=== PATIENT | male | born 1940 | race Caucasian/White ===

== ENCOUNTER 2018-10-03 19:09 | Inpatient (IN) ==
[2018-10-03] MEDS ORDERED: GLUCAGON 1 MG VIAL IM PRN (20:51)
[2018-10-03] MEDS ORDERED: ONDANSETRON 4 MG/2 ML VIAL IV PRN (20:51)
[2018-10-03] MEDS ORDERED: ACETAMINOPHEN 325 MG TABLET PO PRN (20:51)
[2018-10-03] MEDS ORDERED: DEXTROSE 50% 25 GM/50 ML SYRINGE IV PRN (20:51)
[2018-10-03 21:54] LABS: Basophils % 0.1 % (0.0-0.8); Eosinophils # 0.4 10*3/uL (0.0-0.87); Eosinophils % 4.2 % (0.00-10.9); Hematocrit 39.3 VOL% (42.0-52.0); Hemoglobin 12.4 GM/DL (14.0-18.0); Immature Granulocytes % 0.4 %; Immature Granulocytes Absolute 0.04 #; Lymphocytes % 11.5 % (21.2-54.2); Mean Corpuscular HGB Conc 31.6 GM/DL (32-36); Mean Corpuscular Hemoglobin 32 PG (27-34); Mean Corpuscular Volume 101.8 FL (87-102); Mean Platelet Volume 10.6 FL (9.6-12.0); Monocytes # 0.7 10*3/uL (0.11-0.8); Monocytes % 7.5 % (1.7-12.7); Neutrophils # 6.9 10*3/uL (1.4-7.4); Neutrophils % 76.3 % (38.7-73.9); Platelet Count 156 T/CUMM (130-400); Red Blood Count 3.86 MC/CUMM (3.8-5.5); Red Cell Distribution Width 15.4 % (9.3-17.3)
[2018-10-03 22:15] LABS: Bilirubin,Total 0.8 MG/DL (0.2-1.0); Osmolality,Calculated 286.7 MOS/KG (273-304); Potassium 4.5 MMOL/L (3.5-5.1); Total Protein 9.5 G/DL (6.4-8.3)
[2018-10-03 22:36] LABS: Platelet Estimate Normal; Polychromasia Few
[2018-10-03] MEDS: METOPROLOL TARTRATE 25 MG TABLET PO SCH (23:45)
[2018-10-03] MEDS: BENZONATATE 100 MG CAPSULE PO PRN (23:45)
[2018-10-03] MEDS: SIMVASTATIN 40 MG TABLET PO SCH (23:45)
[2018-10-03] MEDS: PREGABALIN 100 MG CAPSULE PO SCH (23:45)
[2018-10-03] MEDS: ZALEPLON 5 MG CAPSULE PO PRN (23:46)
[2018-10-04] MEDS: BENZONATATE 100 MG CAPSULE PO PRN ×2 (06:33→09:35)
[2018-10-04] MEDS ORDERED: VALSARTAN 160 MG TABLET PO SCH (09:00)
[2018-10-04] MEDS: FUROSEMIDE 40 MG/4 ML VIAL IV SCH ×2 (09:33→16:55)
[2018-10-04] MEDS: METOPROLOL TARTRATE 25 MG TABLET PO SCH ×2 (09:34→20:59)
[2018-10-04] MEDS: PARoxetine 20 MG TABLET PO SCH (09:34)
[2018-10-04] MEDS: POTASSIUM CHLORIDE 10 MEQ TABLET PO SCH (09:34)
[2018-10-04] MEDS: glipiZIDE 5 MG TABLET PO SCH (09:34)
[2018-10-04] MEDS: PREGABALIN 100 MG CAPSULE PO SCH ×2 (09:35→21:00)
[2018-10-04] MEDS: TERAZOSIN 2 MG CAPSULE PO SCH ×3 (09:35→20:59)
[2018-10-04] MEDS: FLUTICASONE 50 MCG NASAL SPRAY 16 GM BOTTLE BOTH NARES SCH (09:47)
[2018-10-04] MEDS: PANTOPRAZOLE 40 MG TABLET PO SCH (09:47)
[2018-10-04] MEDS: LEVOFLOXACIN INJ 500 MG in PREMIX 1 EACH IV SCH (13:30)
[2018-10-04] MEDS: ALBUTEROL/IPRATROPIUM 3 ML NEB RESP TX SCH (19:07)
[2018-10-04] MEDS: ASPIRIN EC 325 MG TABLET PO SCH (21:00)
[2018-10-04] MEDS: ZALEPLON 5 MG CAPSULE PO PRN (21:00)
[2018-10-04] MEDS: SIMVASTATIN 40 MG TABLET PO SCH (21:00)
[2018-10-05] MEDS: ALBUTEROL/IPRATROPIUM 3 ML NEB RESP TX SCH ×4 (01:05→18:58)
[2018-10-05 05:42] LABS: Calcium 8.5 MG/DL (8.5-10.1); Osmolality,Calculated 286.7 MOS/KG (273-304)
[2018-10-05] MEDS: PANTOPRAZOLE 40 MG TABLET PO SCH (08:12)
[2018-10-05] MEDS: METOPROLOL TARTRATE 25 MG TABLET PO SCH ×2 (08:12→23:52)
[2018-10-05] MEDS: TERAZOSIN 2 MG CAPSULE PO SCH ×2 (08:12→16:31)
[2018-10-05] MEDS: PARoxetine 20 MG TABLET PO SCH (08:12)
[2018-10-05] MEDS: FUROSEMIDE 40 MG/4 ML VIAL IV SCH ×2 (08:12→15:56)
[2018-10-05] MEDS: ASPIRIN EC 325 MG TABLET PO SCH (08:12)
[2018-10-05] MEDS: POTASSIUM CHLORIDE 10 MEQ TABLET PO SCH (08:12)
[2018-10-05] MEDS: glipiZIDE 5 MG TABLET PO SCH (08:13)
[2018-10-05] MEDS: PREGABALIN 100 MG CAPSULE PO SCH ×2 (08:14→21:49)
[2018-10-05] MEDS: FLUTICASONE 50 MCG NASAL SPRAY 16 GM BOTTLE BOTH NARES SCH (08:14)
[2018-10-05] MEDS ORDERED: VALSARTAN 160 MG TABLET PO SCH (09:00)
[2018-10-05] MEDS: LEVOFLOXACIN INJ 500 MG in PREMIX 1 EACH IV SCH (13:11)
[2018-10-05] MEDS: BENZONATATE 100 MG CAPSULE PO PRN (13:11)
[2018-10-05] MEDS: ZALEPLON 5 MG CAPSULE PO PRN (21:49)
[2018-10-05] MEDS: SIMVASTATIN 40 MG TABLET PO SCH (21:50)
[2018-10-06] MEDS: ALBUTEROL/IPRATROPIUM 3 ML NEB RESP TX SCH ×4 (00:17→18:56)
[2018-10-06 05:39] LABS: Basophils % 0.2 % (0.0-0.8); Eosinophils # 0.6 10*3/uL (0.0-0.87); Eosinophils % 12.4 % (0.00-10.9); Hematocrit 34.8 VOL% (42.0-52.0); Hemoglobin 10.9 GM/DL (14.0-18.0); Immature Granulocytes % 0.4 %; Immature Granulocytes Absolute 0.02 #; Lymphocytes % 19.5 % (21.2-54.2); Mean Corpuscular HGB Conc 31.3 GM/DL (32-36); Mean Corpuscular Hemoglobin 32 PG (27-34); Mean Corpuscular Volume 103.3 FL (87-102); Mean Platelet Volume 10.8 FL (9.6-12.0); Monocytes # 0.6 10*3/uL (0.11-0.8); Monocytes % 12.4 % (1.7-12.7); Neutrophils # 2.7 10*3/uL (1.4-7.4); Neutrophils % 55.1 % (38.7-73.9); Platelet Count 150 T/CUMM (130-400); Red Blood Count 3.37 MC/CUMM (3.8-5.5); Red Cell Distribution Width 15.1 % (9.3-17.3); White Blood Count 4.9 T/CUMM (4-12)
[2018-10-06 05:46] LABS: Calcium 8.3 MG/DL (8.5-10.1); Potassium 4.3 MMOL/L (3.5-5.1)
[2018-10-06 06:40] LABS: Band Neutrophils 2 % (0-10); Eosinophils 10 % (0-10); Hypochromasia Slight; Lymphocytes 24 % (20-55); Platelet Estimate Adequate; Segmented Neutrophils 50 % (50-85); Total Cells Counted 100
[2018-10-06] MEDS: FUROSEMIDE 40 MG/4 ML VIAL IV SCH ×2 (08:50→15:31)
[2018-10-06] MEDS: ASPIRIN EC 325 MG TABLET PO SCH (08:51)
[2018-10-06] MEDS: PANTOPRAZOLE 40 MG TABLET PO SCH (08:51)
[2018-10-06] MEDS: METOPROLOL TARTRATE 25 MG TABLET PO SCH ×2 (08:51→21:48)
[2018-10-06] MEDS: PARoxetine 20 MG TABLET PO SCH (08:51)
[2018-10-06] MEDS: VALSARTAN 80 MG TABLET PO SCH (08:51)
[2018-10-06] MEDS: FLUTICASONE 50 MCG NASAL SPRAY 16 GM BOTTLE BOTH NARES SCH (08:52)
[2018-10-06] MEDS: glipiZIDE 5 MG TABLET PO SCH (08:52)
[2018-10-06] MEDS: PREGABALIN 100 MG CAPSULE PO SCH ×2 (08:52→21:48)
[2018-10-06] MEDS: POTASSIUM CHLORIDE 10 MEQ TABLET PO SCH (08:52)
[2018-10-06] MEDS: LEVOFLOXACIN INJ 500 MG in PREMIX 1 EACH IV SCH (12:47)
[2018-10-06] MEDS: DUTASTERIDE 0.5 MG CAPSULE PO SCH (12:47)
[2018-10-06] MEDS: SIMVASTATIN 40 MG TABLET PO SCH (21:48)
[2018-10-07] MEDS: ALBUTEROL/IPRATROPIUM 3 ML NEB RESP TX SCH ×4 (00:12→19:35)
[2018-10-07] MEDS: METOPROLOL TARTRATE 25 MG TABLET PO SCH ×2 (08:41→21:24)
[2018-10-07] MEDS: POTASSIUM CHLORIDE 10 MEQ TABLET PO SCH (08:41)
[2018-10-07] MEDS: PANTOPRAZOLE 40 MG TABLET PO SCH (08:41)
[2018-10-07] MEDS: PREGABALIN 100 MG CAPSULE PO SCH ×2 (08:41→21:23)
[2018-10-07] MEDS: PARoxetine 20 MG TABLET PO SCH (08:41)
[2018-10-07] MEDS: DUTASTERIDE 0.5 MG CAPSULE PO SCH (08:41)
[2018-10-07] MEDS: FUROSEMIDE 40 MG/4 ML VIAL IV SCH ×2 (08:42→16:04)
[2018-10-07] MEDS: glipiZIDE 5 MG TABLET PO SCH (08:42)
[2018-10-07] MEDS: FLUTICASONE 50 MCG NASAL SPRAY 16 GM BOTTLE BOTH NARES SCH (08:42)
[2018-10-07] MEDS: VALSARTAN 80 MG TABLET PO SCH (08:45)
[2018-10-07] MEDS: LEVOFLOXACIN INJ 500 MG in PREMIX 1 EACH IV SCH (12:56)
[2018-10-07] MEDS: SIMVASTATIN 40 MG TABLET PO SCH (21:23)
[2018-10-08] MEDS: ALBUTEROL/IPRATROPIUM 3 ML NEB RESP TX SCH ×4 (00:45→19:50)
[2018-10-08] MEDS: METOPROLOL TARTRATE 25 MG TABLET PO SCH ×2 (08:21→21:07)
[2018-10-08] MEDS: PARoxetine 20 MG TABLET PO SCH (08:22)
[2018-10-08] MEDS: DUTASTERIDE 0.5 MG CAPSULE PO SCH (08:22)
[2018-10-08] MEDS: VALSARTAN 80 MG TABLET PO SCH (08:22)
[2018-10-08] MEDS: PANTOPRAZOLE 40 MG TABLET PO SCH (08:23)
[2018-10-08] MEDS: glipiZIDE 5 MG TABLET PO SCH (08:23)
[2018-10-08] MEDS: PREGABALIN 100 MG CAPSULE PO SCH ×2 (08:23→21:07)
[2018-10-08] MEDS: POTASSIUM CHLORIDE 10 MEQ TABLET PO SCH (08:23)
[2018-10-08] MEDS: FUROSEMIDE 40 MG/4 ML VIAL IV SCH ×3 (08:24→16:29)
[2018-10-08] MEDS: FLUTICASONE 50 MCG NASAL SPRAY 16 GM BOTTLE BOTH NARES SCH (08:25)
[2018-10-08] MEDS: LEVOFLOXACIN INJ 500 MG in PREMIX 1 EACH IV SCH (13:18)
[2018-10-08] MEDS: SIMVASTATIN 40 MG TABLET PO SCH (21:07)
[2018-10-09] MEDS: ALBUTEROL/IPRATROPIUM 3 ML NEB RESP TX SCH ×3 (00:03→13:15)
[2018-10-09 04:57] LABS: Basophils % 0.3 % (0.0-0.8); Eosinophils # 0.7 10*3/uL (0.0-0.87); Eosinophils % 10.4 % (0.00-10.9); Hematocrit 33.5 VOL% (42.0-52.0); Hemoglobin 10.8 GM/DL (14.0-18.0); Immature Granulocytes % 0.2 %; Immature Granulocytes Absolute 0.01 #; Lymphocytes # 0.7 10*3/uL (1.4-4.0); Lymphocytes % 10.6 % (21.2-54.2); Mean Corpuscular HGB Conc 32.2 GM/DL (32-36); Mean Corpuscular Hemoglobin 32 PG (27-34); Mean Corpuscular Volume 99.7 FL (87-102); Mean Platelet Volume 11.1 FL (9.6-12.0); Monocytes # 0.8 10*3/uL (0.11-0.8); Monocytes % 11.3 % (1.7-12.7); Neutrophils # 4.4 10*3/uL (1.4-7.4); Neutrophils % 67.2 % (38.7-73.9); Platelet Count 175 T/CUMM (130-400); Red Blood Count 3.36 MC/CUMM (3.8-5.5); White Blood Count 6.6 T/CUMM (4-12)
[2018-10-09 05:36] LABS: Albumin 3.3 G/DL (3.4-5.0); Bilirubin,Total 0.7 MG/DL (0.2-1.0); Calcium 8.8 MG/DL (8.5-10.1); Potassium 4.3 MMOL/L (3.5-5.1); Total Protein 8.1 G/DL (6.4-8.3)
[2018-10-09] MEDS: PANTOPRAZOLE 40 MG TABLET PO SCH (08:55)
[2018-10-09] MEDS: FUROSEMIDE 40 MG/4 ML VIAL IV SCH ×2 (08:55→14:43)
[2018-10-09] MEDS: POTASSIUM CHLORIDE 10 MEQ TABLET PO SCH (08:56)
[2018-10-09] MEDS: glipiZIDE 5 MG TABLET PO SCH (08:56)
[2018-10-09] MEDS: DUTASTERIDE 0.5 MG CAPSULE PO SCH (08:56)
[2018-10-09] MEDS: PREGABALIN 100 MG CAPSULE PO SCH (08:56)
[2018-10-09] MEDS: VALSARTAN 80 MG TABLET PO SCH (08:56)
[2018-10-09] MEDS: PARoxetine 20 MG TABLET PO SCH (08:56)
[2018-10-09] MEDS: FLUTICASONE 50 MCG NASAL SPRAY 16 GM BOTTLE BOTH NARES SCH (08:57)
[2018-10-09] MEDS: METOPROLOL TARTRATE 25 MG TABLET PO SCH (08:57)
[2018-10-09] MEDS ORDERED: ASPIRIN CHEW 81 MG TABLET PO SCH (11:30)
[2018-10-09 12:32] VITALS: BP 93/49
== END 2018-10-09 14:40 | disposition home health service (06) | DRG 291 ==
LOC: EDUNIT# → EDBD → N.ED 19:09 → N.EDINP 20:51 → N.TELES 21:19
PROVIDERS: ADMIT Family Medicine; ATTEND Family Medicine

== ENCOUNTER 2020-09-22 11:24 | Inpatient (IN) ==
[2020-09-22] MEDS ORDERED: ONDANSETRON 4 MG/2 ML VIAL IV PRN (12:31)
[2020-09-22] MEDS ORDERED: ACETAMINOPHEN 325 MG TABLET PO PRN (12:31)
[2020-09-22] MEDS ORDERED: DEXTROSE 50% 25 GM/50 ML VIAL IV PRN (12:31)
[2020-09-22] MEDS ORDERED: GLUCAGON 1 MG VIAL IM PRN (12:31)
[2020-09-22] MEDS ORDERED: NITROGLYCERIN SL 0.4 MG TABLET SL PRN (12:34)
[2020-09-22 14:07] LABS: Basophils % 0.4 % (0.0-0.8); Eosinophils # 1.2 10*3/uL (0.0-0.87); Eosinophils % 17.8 % (0.00-10.9); Hematocrit 35.3 VOL% (42.0-52.0); Hemoglobin 11.3 GM/DL (14.0-18.0); Immature Granulocytes % 0.3 %; Immature Granulocytes Absolute 0.02 #; Lymphocytes # 0.8 10*3/uL (1.4-4.0); Lymphocytes % 12.2 % (21.2-54.2); Mean Corpuscular Volume 106.3 FL (87-102); Mean Platelet Volume 11.1 FL (9.6-12.0); Neutrophils % 58.3 % (38.7-73.9); Platelet Count 190 T/CUMM (130-400); Red Blood Count 3.32 MC/CUMM (3.8-5.5); Red Cell Distribution Width 16.1 % (9.3-17.3); White Blood Count 6.7 T/CUMM (4-12)
[2020-09-22 14:29] LABS: Albumin 3.7 G/DL (3.4-5.0); Bilirubin,Total 0.7 MG/DL (0.2-1.0); Calcium 9.1 MG/DL (8.5-10.1); Osmolality,Calculated 294.1 MOS/KG (273-304); Potassium 4.2 MMOL/L (3.5-5.1); Total Protein 7.9 G/DL (6.4-8.2); Troponin I 0.022 NG/ML (0.00-0.045)
[2020-09-22 14:33] LABS: Eosinophils 21 % (0-10); Hypochromasia 1+; Lymphocytes 9 % (20-55); Microcytosis 1+; Platelet Estimate Adequate; Segmented Neutrophils 60 % (50-85); Total Cells Counted 100
[2020-09-22] MEDS: ALBUTEROL/IPRATROPIUM 3 ML NEB RESP TX SCH ×2 (15:48→19:09)
[2020-09-22] MEDS: FUROSEMIDE 40 MG/4 ML VIAL IV SCH (16:12)
[2020-09-22] MEDS: ENOXAPARIN 30 MG/0.3 ML SYRINGE SUBCUT SCH (16:12)
[2020-09-22 17:23] LABS: Troponin I 0.024 NG/ML (0.00-0.045)
[2020-09-22] MEDS: INSULIN LISPRO 100 UNIT/ML SUBCUT SCH ×2 (18:05→21:24)
[2020-09-22 19:31] LABS: Troponin I 0.021 NG/ML (0.00-0.045)
[2020-09-22] MEDS: DOCUSATE SODIUM 100 MG CAPSULE PO SCH (21:23)
[2020-09-22] MEDS: MYCOPHENOLATE MOFETIL 250 MG CAPSULE PO SCH (21:23)
[2020-09-22] MEDS: PREGABALIN 100 MG CAPSULE PO SCH (21:23)
[2020-09-22] MEDS: TAMSULOSIN 0.4 MG CAPSULE PO SCH (21:23)
[2020-09-22] MEDS: SIMVASTATIN 40 MG TABLET PO SCH (21:24)
[2020-09-22] MEDS: carvediloL 12.5 MG TABLET PO SCH (21:24)
[2020-09-22] MEDS: INSULIN GLARGINE 100 UNIT/ML SUBCUT SCH (21:25)
[2020-09-22 21:58] LABS: Troponin I 0.021 NG/ML (0.00-0.045)
[2020-09-23] MEDS: ALBUTEROL/IPRATROPIUM 3 ML NEB RESP TX SCH ×4 (01:23→19:53)
[2020-09-23 06:59] LABS: Basophils % 0.5 % (0.0-0.8); Eosinophils # 1.2 10*3/uL (0.0-0.87); Eosinophils % 19.2 % (0.00-10.9); Hematocrit 33.9 VOL% (42.0-52.0); Immature Granulocytes % 0.2 %; Immature Granulocytes Absolute 0.01 #; Lymphocytes # 0.8 10*3/uL (1.4-4.0); Lymphocytes % 13.3 % (21.2-54.2); Mean Corpuscular HGB Conc 32.4 GM/DL (32-36); Mean Platelet Volume 12.2 FL (9.6-12.0); Monocytes % 11.1 % (1.7-12.7); Neutrophils % 55.7 % (38.7-73.9); Platelet Count 147 T/CUMM (130-400); Red Blood Count 3.23 MC/CUMM (3.8-5.5)
[2020-09-23 07:14] LABS: Risk Ratio 4.38; VLDL CHOLESTEROL 27.6 MG/DL
[2020-09-23 07:29] LABS: Eosinophils 22 % (0-10); Hypochromasia 1+; Lymphocytes 13 % (20-55); Microcytosis 1+; Platelet Estimate Adequate; Segmented Neutrophils 60 % (50-85); Total Cells Counted 100
[2020-09-23 07:43] LABS: Osmolality,Calculated 290.5 MOS/KG (273-304); Potassium 3.6 MMOL/L (3.5-5.1)
[2020-09-23] MEDS: INSULIN LISPRO 100 UNIT/ML SUBCUT SCH ×4 (07:47→22:15)
[2020-09-23 08:15] LABS: Total Protein (Chem) 7.9 G/DL (6.4-8.3)
[2020-09-23 08:26] LABS: Ferritin 82.8 ng/ml (26-388)
[2020-09-23] MEDS: glipiZIDE 5 MG TABLET PO SCH (08:51)
[2020-09-23] MEDS: CLOPIDOGREL 75 MG TABLET PO SCH (08:52)
[2020-09-23] MEDS: MYCOPHENOLATE MOFETIL 250 MG CAPSULE PO SCH ×2 (08:52→22:14)
[2020-09-23] MEDS: carvediloL 12.5 MG TABLET PO SCH ×2 (08:52→22:13)
[2020-09-23] MEDS: SPIRONOLACTONE 25 MG TABLET PO SCH (08:52)
[2020-09-23] MEDS: PREGABALIN 100 MG CAPSULE PO SCH ×2 (08:52→22:13)
[2020-09-23] MEDS: DOCUSATE SODIUM 100 MG CAPSULE PO SCH ×2 (08:52→22:14)
[2020-09-23] MEDS: ASPIRIN CHEW 81 MG TABLET PO SCH (08:52)
[2020-09-23] MEDS: PANTOPRAZOLE 40 MG TABLET PO SCH (08:53)
[2020-09-23] MEDS: PARoxetine 20 MG TABLET PO SCH (08:59)
[2020-09-23 09:00] LABS: Folate > 24.0 NG/ML (5.38-24.0); Vitamin B12 400 PG/ML (211-911)
[2020-09-23] MEDS ORDERED: NON-FORMULARY MEDICATION (Tiotropium-Olodaterol [Stiolto Respimat] 2.5-2.5 mcg/actuation M INH SCH (09:00)
[2020-09-23] MEDS ORDERED: DAPAGLIFLOZIN 5 MG PO SCH (09:00)
[2020-09-23] MEDS ORDERED: PARoxetine 10 MG TABLET PO SCH (09:00)
[2020-09-23] MEDS: FUROSEMIDE 40 MG/4 ML VIAL IV SCH ×2 (09:01→16:00)
[2020-09-23 09:11] LABS: Albumin (SPE) 4.8 G/DL (3.2-5.3); Albumin (SPE) Rel % 61.3 %; Alpha 1 (SPE) 0.2 G/DL (0.1-0.4); Alpha 1 (SPE) Rel % 2.2 %; Alpha 2 (SPE) 0.7 G/DL (0.4-1.0); Alpha 2 (SPE) Rel % 9.2 %; Beta (SPE) 0.9 G/DL (0.5-1.1); Beta (SPE) Rel % 10.8 %; Gamma (SPE) Rel % 16.5 %
[2020-09-23] MEDS: BENZONATATE 100 MG CAPSULE PO SCH ×3 (10:13→22:12)
[2020-09-23 12:08] LABS: Gamma (SPE) 1.3 G/DL (0.7-1.7)
[2020-09-23] MEDS: ENOXAPARIN 30 MG/0.3 ML SYRINGE SUBCUT SCH (16:00)
[2020-09-23] MEDS: SIMVASTATIN 40 MG TABLET PO SCH (22:12)
[2020-09-23] MEDS: TAMSULOSIN 0.4 MG CAPSULE PO SCH (22:14)
[2020-09-23] MEDS: INSULIN GLARGINE 100 UNIT/ML SUBCUT SCH (22:15)
[2020-09-24] MEDS: ALBUTEROL/IPRATROPIUM 3 ML NEB RESP TX SCH ×4 (01:43→20:18)
[2020-09-24 05:19] LABS: Basophils % 0.4 % (0.0-0.8); Eosinophils # 1.1 10*3/uL (0.0-0.87); Eosinophils % 15.9 % (0.00-10.9); Hematocrit 33.7 VOL% (42.0-52.0); Hemoglobin 10.9 GM/DL (14.0-18.0); Immature Granulocytes % 0.4 %; Immature Granulocytes Absolute 0.03 #; Lymphocytes # 0.8 10*3/uL (1.4-4.0); Lymphocytes % 12.1 % (21.2-54.2); Mean Corpuscular HGB Conc 32.3 GM/DL (32-36); Mean Corpuscular Volume 103.7 FL (87-102); Mean Platelet Volume 12.3 FL (9.6-12.0); Monocytes % 10.5 % (1.7-12.7); Neutrophils % 60.7 % (38.7-73.9); Platelet Count 135 T/CUMM (130-400); Red Blood Count 3.25 MC/CUMM (3.8-5.5); Red Cell Distribution Width 15.8 % (9.3-17.3); White Blood Count 6.9 T/CUMM (4-12)
[2020-09-24 05:42] LABS: Calcium 8.4 MG/DL (8.5-10.1); Osmolality,Calculated 294.3 MOS/KG (273-304); Potassium 3.9 MMOL/L (3.5-5.1)
[2020-09-24 05:52] LABS: Eosinophils 20 % (0-10); Lymphocytes 15 % (20-55); Microcytosis 1+; Ovalocytes Slight; Polychromasia Slight; Segmented Neutrophils 59 % (50-85); Total Cells Counted 100
[2020-09-24 05:53] LABS: Platelet Estimate Adequate
[2020-09-24] MEDS: ASPIRIN CHEW 81 MG TABLET PO SCH (09:07)
[2020-09-24] MEDS: PARoxetine 20 MG TABLET PO SCH (09:08)
[2020-09-24] MEDS: BENZONATATE 100 MG CAPSULE PO SCH ×3 (09:08→21:58)
[2020-09-24] MEDS: PREGABALIN 100 MG CAPSULE PO SCH ×2 (09:08→21:59)
[2020-09-24] MEDS: glipiZIDE 5 MG TABLET PO SCH (09:09)
[2020-09-24] MEDS: CLOPIDOGREL 75 MG TABLET PO SCH (09:11)
[2020-09-24] MEDS: carvediloL 12.5 MG TABLET PO SCH ×2 (09:11→21:59)
[2020-09-24] MEDS: SPIRONOLACTONE 25 MG TABLET PO SCH (09:12)
[2020-09-24] MEDS: MYCOPHENOLATE MOFETIL 250 MG CAPSULE PO SCH ×2 (09:15→21:58)
[2020-09-24] MEDS: PANTOPRAZOLE 40 MG TABLET PO SCH (09:15)
[2020-09-24] MEDS: INSULIN LISPRO 100 UNIT/ML SUBCUT SCH ×4 (09:18→22:00)
[2020-09-24] MEDS: FUROSEMIDE 40 MG/4 ML VIAL IV SCH ×2 (09:18→15:32)
[2020-09-24] MEDS: DOCUSATE SODIUM 100 MG CAPSULE PO SCH ×2 (10:13→21:59)
[2020-09-24] MEDS: ENOXAPARIN 30 MG/0.3 ML SYRINGE SUBCUT SCH (15:33)
[2020-09-24] MEDS: INSULIN GLARGINE 100 UNIT/ML SUBCUT SCH (21:59)
[2020-09-24] MEDS: TAMSULOSIN 0.4 MG CAPSULE PO SCH (21:59)
[2020-09-24] MEDS: SIMVASTATIN 40 MG TABLET PO SCH (22:05)
[2020-09-25] MEDS: ALBUTEROL/IPRATROPIUM 3 ML NEB RESP TX SCH ×2 (01:47→08:10)
[2020-09-25 07:30] LABS: Basophils % 0.2 % (0.0-0.8); Eosinophils % 16.3 % (0.00-10.9); Hematocrit 32.3 VOL% (42.0-52.0); Hemoglobin 10.9 GM/DL (14.0-18.0); Immature Granulocytes % 0.2 %; Immature Granulocytes Absolute 0.01 #; Lymphocytes # 0.8 10*3/uL (1.4-4.0); Lymphocytes % 12.7 % (21.2-54.2); Mean Corpuscular HGB Conc 33.7 GM/DL (32-36); Mean Corpuscular Volume 101.6 FL (87-102); Mean Platelet Volume 10.7 FL (9.6-12.0); Monocytes % 11.4 % (1.7-12.7); Neutrophils % 59.2 % (38.7-73.9); Platelet Count 158 T/CUMM (130-400); Red Blood Count 3.18 MC/CUMM (3.8-5.5); Red Cell Distribution Width 15.9 % (9.3-17.3); White Blood Count 6.1 T/CUMM (4-12)
[2020-09-25 07:44] LABS: Calcium 8.8 MG/DL (8.5-10.1); Osmolality,Calculated 289.7 MOS/KG (273-304); Potassium 3.6 MMOL/L (3.5-5.1)
[2020-09-25 07:52] LABS: Eosinophils 15 % (0-10); Lymphocytes 15 % (20-55); Platelet Estimate Adequate; Segmented Neutrophils 62 % (50-85); Total Cells Counted 100
[2020-09-25 07:53] LABS: Hypochromasia 1+; Microcytosis 1+
[2020-09-25] MEDS: INSULIN LISPRO 100 UNIT/ML SUBCUT SCH (08:00)
[2020-09-25 08:40] VITALS: BP 114/57
[2020-09-25] MEDS: ASPIRIN CHEW 81 MG TABLET PO SCH (08:45)
[2020-09-25] MEDS: glipiZIDE 5 MG TABLET PO SCH (08:45)
[2020-09-25] MEDS: PREGABALIN 100 MG CAPSULE PO SCH (08:45)
[2020-09-25] MEDS: MYCOPHENOLATE MOFETIL 250 MG CAPSULE PO SCH (08:45)
[2020-09-25] MEDS: carvediloL 12.5 MG TABLET PO SCH (08:45)
[2020-09-25] MEDS: DOCUSATE SODIUM 100 MG CAPSULE PO SCH (08:46)
[2020-09-25] MEDS: PARoxetine 20 MG TABLET PO SCH (08:46)
[2020-09-25] MEDS: CLOPIDOGREL 75 MG TABLET PO SCH (08:46)
[2020-09-25] MEDS: FUROSEMIDE 40 MG/4 ML VIAL IV SCH (08:46)
[2020-09-25] MEDS: PANTOPRAZOLE 40 MG TABLET PO SCH (08:46)
[2020-09-25] MEDS: SPIRONOLACTONE 25 MG TABLET PO SCH (08:46)
[2020-09-25] MEDS: BENZONATATE 100 MG CAPSULE PO SCH (08:46)
== END 2020-09-25 11:05 | disposition home or self-care (01) | DRG 291 ==
LOC: N.TELEN 12:37
PROVIDERS: ADMIT Family Medicine; ATTEND Family Medicine

== ENCOUNTER 2021-01-12 10:53 | Inpatient (IN) ==
[2021-01-12] MEDS ORDERED: DEXTROSE 50% 25 GM/50 ML VIAL IV PRN (10:59)
[2021-01-12] MEDS ORDERED: ACETAMINOPHEN 325 MG TABLET PO PRN (10:59)
[2021-01-12] MEDS ORDERED: ONDANSETRON 4 MG/2 ML VIAL IV PRN (10:59)
[2021-01-12] MEDS ORDERED: GLUCAGON 1 MG VIAL IM PRN (10:59)
[2021-01-12] MEDS ORDERED: NITROGLYCERIN SL 0.4 MG TABLET SL PRN (11:05)
[2021-01-12] MEDS: INSULIN LISPRO 100 UNIT/ML SUBCUT SCH ×3 (15:18→20:57)
[2021-01-12 15:25] LABS: Bilirubin,Urine Negative (Negative); Blood, Urine Large mg/dL (Negative); Glucose,Urine (UA) Negative (Negative); Hyaline Casts,Urine 1 /LPF (0-3); Ketones,Urine Negative (Negative); Mucus,Urine Occasional /LPF (Occasional); Nitrite,Urine Positive (Negative); Protein,Urine 100 MG/DL; RBC,Urine 55 /HPF (0-4); Squamous Epithelial Cell,Urine Occasional /HPF (0-10); Urine Appearance Slightly Hazy (Clear); Urine Color Yellow (Yellow); Urine Specific Gravity 1.013 (1.001-1.035); Urine Urobilinogen < 2.0 EU/DL (0.2-1.0)
[2021-01-12 15:35] LABS: Basophils % 0.3 % (0.0-0.8); Eosinophils # 0.8 10*3/uL (0.0-0.87); Eosinophils % 10.6 % (0.00-10.9); Hematocrit 31.7 VOL% (42.0-52.0); Hemoglobin 10.7 GM/DL (14.0-18.0); Immature Granulocytes % 0.3 %; Immature Granulocytes Absolute 0.02 #; Lymphocytes # 0.7 10*3/uL (1.4-4.0); Lymphocytes % 8.5 % (21.2-54.2); Mean Corpuscular HGB Conc 33.8 GM/DL (32-36); Mean Corpuscular Volume 97.8 FL (87-102); Mean Platelet Volume 11.6 FL (9.6-12.0); Monocytes % 11.2 % (1.7-12.7); Neutrophils % 69.1 % (38.7-73.9); Platelet Count 209 T/CUMM (130-400); Red Blood Count 3.24 MC/CUMM (3.8-5.5); Red Cell Distribution Width 14.6 % (9.3-17.3); White Blood Count 7.9 T/CUMM (4-12)
[2021-01-12 15:52] LABS: Albumin 2.8 G/DL (3.4-5.0); Bilirubin,Total 0.6 MG/DL (0.20-1.00); Calcium 8.9 MG/DL (8.5-10.1); Osmolality,Calculated 298.9 MOS/KG (273-304); Potassium 3.8 MMOL/L (3.5-5.1); Total Protein 8.4 G/DL (6.4-8.2)
[2021-01-12] MEDS ORDERED: cefTRIAXone 1,000 MG in SODIUM CHLORIDE 0.9% 100 ML IV STA (16:07)
[2021-01-12] MEDS: ALBUTEROL/IPRATROPIUM 3 ML NEB RESP TX SCH ×2 (16:50→19:45)
[2021-01-12] MEDS: carvediloL 6.25 MG TABLET PO SCH (17:19)
[2021-01-12] MEDS: glipiZIDE 5 MG TABLET PO SCH (17:19)
[2021-01-12 18:30] LABS: ABG Base Excess 6.7 MMOL/L (-2.5-2.5); ABG HCO3 32.6 MMOL/L (20-26); ABG PCO2 51.2 MM HG (35-48); ABG PH 7.422 (7.35-7.45); ABG TCO2 34.2 MMOL/L (23-27)
[2021-01-12 18:31] LABS: ABG Oxygen Saturation 91.1 % (95-100)
[2021-01-12 19:50] LABS: Eosinophils 12 % (0-10); Lymphocytes 10 % (20-55); Macrocytosis Slight; Platelet Estimate Adequate; Segmented Neutrophils 73 % (50-85); Total Cells Counted 100
[2021-01-12] MEDS: ENOXAPARIN 30 MG/0.3 ML SYRINGE SUBCUT SCH (20:57)
[2021-01-12] MEDS: PREGABALIN 100 MG CAPSULE PO SCH ×2 (20:57→22:25)
[2021-01-12] MEDS: DOCUSATE SODIUM 100 MG CAPSULE PO SCH ×2 (20:57→22:24)
[2021-01-12] MEDS: SIMVASTATIN 40 MG TABLET PO SCH (20:57)
[2021-01-12] MEDS: TAMSULOSIN 0.4 MG CAPSULE PO SCH ×2 (20:57→22:25)
[2021-01-12] MEDS: MYCOPHENOLATE MOFETIL 250 MG CAPSULE PO SCH ×2 (20:57→22:23)
[2021-01-12] MEDS: INSULIN GLARGINE 100 UNIT/ML SUBCUT SCH (20:57)
[2021-01-12] MEDS ORDERED: FUROSEMIDE 80 MG TABLET PO SCH (21:00)
[2021-01-13] MEDS: ALBUTEROL/IPRATROPIUM 3 ML NEB RESP TX SCH ×2 (01:13→19:10)
[2021-01-13 05:13] LABS: Risk Ratio 4.53; VLDL Cholesterol 23.2 MG/DL
[2021-01-13 05:57] LABS: Albumin 2.9 G/DL (3.4-5.0); Bilirubin,Total 0.5 MG/DL (0.20-1.00); Calcium 9.4 MG/DL (8.5-10.1); Osmolality,Calculated 297.9 MOS/KG (273-304); Potassium 3.7 MMOL/L (3.5-5.1); Total Protein 8.1 G/DL (6.4-8.2)
[2021-01-13] MEDS ORDERED: SODIUM CHLORIDE 0.9% 250 ML IV ONE (07:52)
[2021-01-13] MEDS ORDERED: PARoxetine 10 MG TABLET PO SCH (09:00)
[2021-01-13] MEDS ORDERED: SPIRONOLACTONE 25 MG TABLET PO SCH (09:00)
[2021-01-13] MEDS ORDERED: FUROSEMIDE 80 MG TABLET PO SCH (09:00)
[2021-01-13] MEDS: MYCOPHENOLATE MOFETIL 250 MG CAPSULE PO SCH ×2 (09:29→22:04)
[2021-01-13] MEDS: DOCUSATE SODIUM 100 MG CAPSULE PO SCH ×2 (09:30→22:03)
[2021-01-13] MEDS: TAMSULOSIN 0.4 MG CAPSULE PO SCH ×2 (09:30→22:04)
[2021-01-13] MEDS: glipiZIDE 5 MG TABLET PO SCH ×2 (09:30→16:34)
[2021-01-13] MEDS: carvediloL 6.25 MG TABLET PO SCH ×2 (09:30→16:34)
[2021-01-13] MEDS: PANTOPRAZOLE 40 MG TABLET PO SCH (09:30)
[2021-01-13] MEDS: CLOPIDOGREL 75 MG TABLET PO SCH (09:31)
[2021-01-13] MEDS: MONTELUKAST 10 MG TABLET PO SCH (09:31)
[2021-01-13] MEDS: ASPIRIN CHEW 81 MG TABLET PO SCH (09:31)
[2021-01-13] MEDS: predniSONE 20 MG TABLET PO SCH (09:31)
[2021-01-13] MEDS: INSULIN LISPRO 100 UNIT/ML SUBCUT SCH ×4 (09:42→22:05)
[2021-01-13] MEDS: NON-FORMULARY MEDICATION (Tiotropium-Olodaterol [Stiolto Respimat] 2.5-2.5 mcg/actuation M INH SCH (09:42)
[2021-01-13] MEDS: SODIUM CHLORIDE 0.9% 1,000 ML IV SCH ×2 (09:42→22:05)
[2021-01-13] MEDS: PREGABALIN 100 MG CAPSULE PO SCH ×2 (09:43→22:03)
[2021-01-13] MEDS: SIMVASTATIN 40 MG TABLET PO SCH (22:04)
[2021-01-13] MEDS: ENOXAPARIN 30 MG/0.3 ML SYRINGE SUBCUT SCH (22:05)
[2021-01-13] MEDS: INSULIN GLARGINE 100 UNIT/ML SUBCUT SCH (22:06)
[2021-01-14] MEDS: ALBUTEROL/IPRATROPIUM 3 ML NEB RESP TX SCH ×5 (01:35→20:39)
[2021-01-14] MEDS: INSULIN LISPRO 100 UNIT/ML SUBCUT SCH ×4 (07:26→23:39)
[2021-01-14 07:49] LABS: Calcium 9.3 MG/DL (8.5-10.1); Osmolality,Calculated 300.5 MOS/KG (273-304); Potassium 3.7 MMOL/L (3.5-5.1)
[2021-01-14] MEDS: PANTOPRAZOLE 40 MG TABLET PO SCH (08:38)
[2021-01-14] MEDS: CLOPIDOGREL 75 MG TABLET PO SCH (08:39)
[2021-01-14] MEDS: MYCOPHENOLATE MOFETIL 250 MG CAPSULE PO SCH ×2 (08:39→21:15)
[2021-01-14] MEDS: MONTELUKAST 10 MG TABLET PO SCH (08:39)
[2021-01-14] MEDS: predniSONE 20 MG TABLET PO SCH (08:39)
[2021-01-14] MEDS: DOCUSATE SODIUM 100 MG CAPSULE PO SCH ×2 (08:39→21:15)
[2021-01-14] MEDS: PREGABALIN 100 MG CAPSULE PO SCH (08:39)
[2021-01-14] MEDS: carvediloL 6.25 MG TABLET PO SCH ×2 (08:39→16:49)
[2021-01-14] MEDS: glipiZIDE 5 MG TABLET PO SCH ×2 (08:39→16:49)
[2021-01-14] MEDS: TAMSULOSIN 0.4 MG CAPSULE PO SCH ×2 (08:39→21:15)
[2021-01-14] MEDS: ASPIRIN CHEW 81 MG TABLET PO SCH (08:39)
[2021-01-14] MEDS: NON-FORMULARY MEDICATION (Tiotropium-Olodaterol [Stiolto Respimat] 2.5-2.5 mcg/actuation M INH SCH (08:40)
[2021-01-14] MEDS: SODIUM CHLORIDE 0.9% 1,000 ML IV SCH ×2 (15:31→23:30)
[2021-01-14] MEDS: MORPHINE 2 MG/1 ML SYRINGE IV PRN ×2 (18:01→21:56)
[2021-01-14] MEDS: DUTASTERIDE 0.5 MG CAPSULE PO SCH (21:14)
[2021-01-14] MEDS: OXYBUTYNIN XL 15 MG TABLET PO SCH (21:14)
[2021-01-14] MEDS: SIMVASTATIN 40 MG TABLET PO SCH (21:15)
[2021-01-14] MEDS: INSULIN GLARGINE 100 UNIT/ML SUBCUT SCH (23:38)
[2021-01-15] MEDS: MORPHINE 2 MG/1 ML SYRINGE IV PRN ×2 (01:47→09:46)
[2021-01-15] MEDS: ALBUTEROL/IPRATROPIUM 3 ML NEB RESP TX SCH ×4 (01:51→20:04)
[2021-01-15 06:49] LABS: Basophils % 0.1 % (0.0-0.8); Eosinophils # 0.2 10*3/uL (0.0-0.87); Eosinophils % 1.3 % (0.00-10.9); Hematocrit 29.1 VOL% (42.0-52.0); Hemoglobin 9.4 GM/DL (14.0-18.0); Immature Granulocytes % 0.7 %; Immature Granulocytes Absolute 0.09 #; Lymphocytes # 0.7 10*3/uL (1.4-4.0); Lymphocytes % 4.8 % (21.2-54.2); Mean Corpuscular HGB Conc 32.3 GM/DL (32-36); Mean Corpuscular Volume 98.6 FL (87-102); Mean Platelet Volume 10.6 FL (9.6-12.0); Monocytes % 8.7 % (1.7-12.7); Neutrophils % 84.4 % (38.7-73.9); Platelet Count 299 T/CUMM (130-400); Red Blood Count 2.95 MC/CUMM (3.8-5.5); Red Cell Distribution Width 14.6 % (9.3-17.3); White Blood Count 13.6 T/CUMM (4-12)
[2021-01-15 07:06] LABS: Osmolality,Calculated 305.4 MOS/KG (273-304); Potassium 4.1 MMOL/L (3.5-5.1)
[2021-01-15 07:08] LABS: Hypochromasia 1+; Lymphocytes 4 % (20-55); Segmented Neutrophils 84 % (50-85); Total Cells Counted 100
[2021-01-15 07:09] LABS: Microcytosis 1+; Platelet Estimate Normal
[2021-01-15] MEDS: INSULIN LISPRO 100 UNIT/ML SUBCUT SCH ×4 (08:35→21:55)
[2021-01-15] MEDS: MONTELUKAST 10 MG TABLET PO SCH (09:01)
[2021-01-15] MEDS: DUTASTERIDE 0.5 MG CAPSULE PO SCH (09:01)
[2021-01-15] MEDS: OXYBUTYNIN XL 15 MG TABLET PO SCH (09:01)
[2021-01-15] MEDS: predniSONE 20 MG TABLET PO SCH (09:01)
[2021-01-15] MEDS: PANTOPRAZOLE 40 MG TABLET PO SCH (09:01)
[2021-01-15] MEDS: MYCOPHENOLATE MOFETIL 250 MG CAPSULE PO SCH ×2 (09:01→21:55)
[2021-01-15] MEDS: DOCUSATE SODIUM 100 MG CAPSULE PO SCH ×2 (09:02→21:55)
[2021-01-15] MEDS: glipiZIDE 5 MG TABLET PO SCH ×2 (09:02→17:08)
[2021-01-15] MEDS: TAMSULOSIN 0.4 MG CAPSULE PO SCH ×2 (09:02→21:55)
[2021-01-15] MEDS: NON-FORMULARY MEDICATION (Tiotropium-Olodaterol [Stiolto Respimat] 2.5-2.5 mcg/actuation M INH SCH (09:12)
[2021-01-15] MEDS: carvediloL 6.25 MG TABLET PO SCH ×2 (10:42→18:35)
[2021-01-15] MEDS: SODIUM CHLORIDE 0.9% 1,000 ML IV SCH ×3 (11:59→23:30)
[2021-01-15] MEDS ORDERED: SODIUM CHLORIDE 0.9% 500 ML IV ONE ×2 (16:33→16:55)
[2021-01-15] MEDS ORDERED: SODIUM CHLORIDE 0.9% 1,000 ML IV PRN ×2 (16:49→17:47)
[2021-01-15] MEDS ORDERED: SODIUM CHLORIDE 0.9% 1,000 ML IV ONE (17:10)
[2021-01-15] MEDS ORDERED: NOREPINEPHRINE 8 MG in SODIUM CHLORIDE 0.9% 242 ML IV PRN (17:11)
[2021-01-15 18:05] LABS: Basophils % 0.1 % (0.0-0.8); Eosinophils % 0.3 % (0.00-10.9); Hematocrit 24.8 VOL% (42.0-52.0); Immature Granulocytes % 0.7 %; Immature Granulocytes Absolute 0.08 #; Lymphocytes # 0.6 10*3/uL (1.4-4.0); Mean Corpuscular HGB Conc 32.3 GM/DL (32-36); Mean Corpuscular Volume 99.2 FL (87-102); Mean Platelet Volume 10.9 FL (9.6-12.0); Monocytes % 6.6 % (1.7-12.7); Neutrophils % 87.3 % (38.7-73.9); Platelet Count 272 T/CUMM (130-400); Red Cell Distribution Width 14.6 % (9.3-17.3); White Blood Count 10.9 T/CUMM (4-12)
[2021-01-15] MEDS: HYDROCORTISONE 100 MG VIAL IV SCH (18:36)
[2021-01-15 19:21] LABS: Calcium 8.4 MG/DL (8.5-10.1); Osmolality,Calculated 313.1 MOS/KG (273-304); Potassium 4.5 MMOL/L (3.5-5.1)
[2021-01-15] MEDS: INSULIN GLARGINE 100 UNIT/ML SUBCUT SCH (21:55)
[2021-01-15] MEDS: SIMVASTATIN 40 MG TABLET PO SCH (21:55)
[2021-01-16] MEDS: ALBUTEROL/IPRATROPIUM 3 ML NEB RESP TX SCH ×4 (00:12→18:16)
[2021-01-16] MEDS: HYDROCORTISONE 100 MG VIAL IV SCH ×4 (00:50→17:58)
[2021-01-16] MEDS: SODIUM CHLORIDE 0.9% 1,000 ML IV SCH ×2 (02:40→13:46)
[2021-01-16 02:41] LABS: Hematocrit 28.5 VOL% (42.0-52.0)
[2021-01-16 02:43] LABS: Hemoglobin 9.5 GM/DL (14.0-18.0)
[2021-01-16 06:10] LABS: Basophils % 0.1 % (0.0-0.8); Eosinophils % 0.1 % (0.00-10.9); Hematocrit 28.9 VOL% (42.0-52.0); Hemoglobin 9.4 GM/DL (14.0-18.0); Immature Granulocytes % 1.4 %; Immature Granulocytes Absolute 0.19 #; Lymphocytes # 0.7 10*3/uL (1.4-4.0); Lymphocytes % 5.3 % (21.2-54.2); Mean Corpuscular HGB Conc 32.5 GM/DL (32-36); Mean Platelet Volume 11.4 FL (9.6-12.0); Monocytes % 4.4 % (1.7-12.7); Neutrophils % 88.7 % (38.7-73.9); Platelet Count 294 T/CUMM (130-400); Red Blood Count 2.95 MC/CUMM (3.8-5.5); White Blood Count 13.9 T/CUMM (4-12)
[2021-01-16 06:22] LABS: Calcium 8.7 MG/DL (8.5-10.1); Osmolality,Calculated 311.5 MOS/KG (273-304); Potassium 4.9 MMOL/L (3.5-5.1)
[2021-01-16] MEDS ORDERED: AMPICILLIN INJ 2,000 MG in SODIUM CHLORIDE 0.9% 100 ML IV ONE (08:00)
[2021-01-16] MEDS: INSULIN LISPRO 100 UNIT/ML SUBCUT SCH ×4 (08:12→20:29)
[2021-01-16] MEDS ORDERED: fentaNYL 100 MCG/2 ML VIAL ONE (08:42)
[2021-01-16] MEDS ORDERED: NEOMYCIN/POLYMYXIN IRRIG SOLN 1 ML AMP BLADDERIRR ONE (08:45)
[2021-01-16] MEDS ORDERED: PHENYLEPHRINE 10 MG/1 ML VIAL IV ONE (09:59)
[2021-01-16] MEDS ORDERED: SODIUM CHLORIDE 0.9% 1,000 ML IV PRN (10:16)
[2021-01-16] MEDS ORDERED: AMINOCAPROIC ACID 5,000 MG/20 ML VIAL ONE (10:58)
[2021-01-16] MEDS ORDERED: LIDOCAINE 2% 5 ML VIAL ONE (11:03)
[2021-01-16] MEDS ORDERED: ETOMIDATE 40 MG/20 ML VIAL IV ONE (11:03)
[2021-01-16] MEDS ORDERED: SODIUM CHLORIDE 0.9% 250 ML IV ONE (11:03)
[2021-01-16] MEDS ORDERED: PHENYLEPHRINE 1 MG/10 ML SYRINGE IV ONE (11:03)
[2021-01-16] MEDS ORDERED: SEVOFLURANE 1 UNIT/15 MINUTE INH ONE (11:03)
[2021-01-16] MEDS ORDERED: SODIUM CHLORIDE 0.9% 1,000 ML IV ONE (11:03)
[2021-01-16] MEDS: DUTASTERIDE 0.5 MG CAPSULE PO SCH (15:04)
[2021-01-16] MEDS: OXYBUTYNIN XL 15 MG TABLET PO SCH (15:05)
[2021-01-16] MEDS: TAMSULOSIN 0.4 MG CAPSULE PO SCH ×2 (15:05→20:29)
[2021-01-16] MEDS: DOCUSATE SODIUM 100 MG CAPSULE PO SCH ×2 (15:05→20:29)
[2021-01-16] MEDS: MONTELUKAST 10 MG TABLET PO SCH (15:05)
[2021-01-16] MEDS: MYCOPHENOLATE MOFETIL 250 MG CAPSULE PO SCH ×2 (15:05→20:28)
[2021-01-16] MEDS: predniSONE 20 MG TABLET PO SCH (15:05)
[2021-01-16] MEDS: NON-FORMULARY MEDICATION (Tiotropium-Olodaterol [Stiolto Respimat] 2.5-2.5 mcg/actuation M INH SCH (15:06)
[2021-01-16] MEDS: PANTOPRAZOLE 40 MG VIAL IV SCH (17:55)
[2021-01-16] MEDS: INSULIN GLARGINE 100 UNIT/ML SUBCUT SCH (20:29)
[2021-01-16] MEDS: SIMVASTATIN 40 MG TABLET PO SCH (20:29)
[2021-01-16] MEDS: MORPHINE 2 MG/1 ML SYRINGE IV PRN (20:38)
[2021-01-17] MEDS: HYDROCORTISONE 100 MG VIAL IV SCH ×4 (00:50→17:23)
[2021-01-17] MEDS: ALBUTEROL/IPRATROPIUM 3 ML NEB RESP TX SCH ×4 (00:55→20:19)
[2021-01-17] MEDS: MORPHINE 2 MG/1 ML SYRINGE IV PRN ×4 (01:41→21:30)
[2021-01-17] MEDS: SODIUM CHLORIDE 0.9% 1,000 ML IV SCH ×3 (03:21→16:49)
[2021-01-17] MEDS ORDERED: MAGNESIUM HYDROXIDE SUSP 30 ML UDCUP PO PRN (05:47)
[2021-01-17 05:58] LABS: Basophils % 0.1 % (0.0-0.8); Eosinophils % 0.1 % (0.00-10.9); Hematocrit 27.7 VOL% (42.0-52.0); Hemoglobin 9.4 GM/DL (14.0-18.0); Immature Granulocytes % 2.1 %; Immature Granulocytes Absolute 0.33 #; Lymphocytes # 0.5 10*3/uL (1.4-4.0); Lymphocytes % 3.5 % (21.2-54.2); Mean Corpuscular HGB Conc 33.9 GM/DL (32-36); Mean Corpuscular Volume 92.3 FL (87-102); Monocytes % 6.2 % (1.7-12.7); Platelet Count 237 T/CUMM (130-400); Red Cell Distribution Width 15.7 % (9.3-17.3); White Blood Count 15.4 T/CUMM (4-12)
[2021-01-17 06:29] LABS: Calcium 8.4 MG/DL (8.5-10.1); Osmolality,Calculated 312.4 MOS/KG (273-304); Potassium 4.8 MMOL/L (3.5-5.1)
[2021-01-17 06:30] LABS: Eosinophils 1 % (0-10); Hypochromasia 1+; Lymphocytes 3 % (20-55); Microcytosis 1+; Platelet Estimate Adequate; Segmented Neutrophils 93 % (50-85); Total Cells Counted 100
[2021-01-17] MEDS: INSULIN LISPRO 100 UNIT/ML SUBCUT SCH ×4 (09:29→21:15)
[2021-01-17] MEDS: PANTOPRAZOLE 40 MG VIAL IV SCH (09:32)
[2021-01-17] MEDS: MONTELUKAST 10 MG TABLET PO SCH (09:34)
[2021-01-17] MEDS: OXYBUTYNIN XL 15 MG TABLET PO SCH (09:34)
[2021-01-17] MEDS: predniSONE 20 MG TABLET PO SCH (09:35)
[2021-01-17] MEDS: TAMSULOSIN 0.4 MG CAPSULE PO SCH ×2 (09:35→21:15)
[2021-01-17] MEDS: MYCOPHENOLATE MOFETIL 250 MG CAPSULE PO SCH ×2 (09:35→21:15)
[2021-01-17] MEDS: DUTASTERIDE 0.5 MG CAPSULE PO SCH (09:35)
[2021-01-17] MEDS: DOCUSATE SODIUM 100 MG CAPSULE PO SCH ×2 (09:35→21:15)
[2021-01-17] MEDS: NON-FORMULARY MEDICATION (Tiotropium-Olodaterol [Stiolto Respimat] 2.5-2.5 mcg/actuation M INH SCH (10:58)
[2021-01-17] MEDS: INSULIN GLARGINE 100 UNIT/ML SUBCUT SCH (21:15)
[2021-01-17] MEDS: SIMVASTATIN 40 MG TABLET PO SCH (21:15)
[2021-01-18] MEDS: HYDROCORTISONE 100 MG VIAL IV SCH ×4 (00:32→17:13)
[2021-01-18] MEDS: ALBUTEROL/IPRATROPIUM 3 ML NEB RESP TX SCH ×4 (00:52→18:05)
[2021-01-18 05:41] LABS: Basophils % 0.2 % (0.0-0.8); Hematocrit 21.8 VOL% (42.0-52.0); Immature Granulocytes % 1.3 %; Immature Granulocytes Absolute 0.16 #; Lymphocytes # 0.4 10*3/uL (1.4-4.0); Lymphocytes % 3.5 % (21.2-54.2); Mean Corpuscular HGB Conc 34.4 GM/DL (32-36); Mean Corpuscular Volume 94.4 FL (87-102); Mean Platelet Volume 10.9 FL (9.6-12.0); Monocytes % 4.8 % (1.7-12.7); Neutrophils % 90.2 % (38.7-73.9); Platelet Count 202 T/CUMM (130-400); Red Cell Distribution Width 15.5 % (9.3-17.3); White Blood Count 12.5 T/CUMM (4-12)
[2021-01-18 05:42] LABS: Hemoglobin 7.5 GM/DL (14.0-18.0); Red Blood Count 2.31 MC/CUMM (3.8-5.5)
[2021-01-18 05:43] LABS: Calcium 8.2 MG/DL (8.5-10.1); Potassium 4.5 MMOL/L (3.5-5.1)
[2021-01-18 05:45] LABS: Hypochromasia 1+; Lymphocytes 3 % (20-55); Microcytosis 1+; Platelet Estimate Adequate; Segmented Neutrophils 89 % (50-85); Total Cells Counted 100
[2021-01-18] MEDS: SODIUM CHLORIDE 0.9% 1,000 ML IV SCH ×2 (06:10→20:18)
[2021-01-18] MEDS: INSULIN LISPRO 100 UNIT/ML SUBCUT SCH ×4 (09:11→20:43)
[2021-01-18] MEDS: MYCOPHENOLATE MOFETIL 250 MG CAPSULE PO SCH ×2 (09:17→20:43)
[2021-01-18] MEDS: DOCUSATE SODIUM 100 MG CAPSULE PO SCH ×2 (09:17→20:43)
[2021-01-18] MEDS: DUTASTERIDE 0.5 MG CAPSULE PO SCH (09:17)
[2021-01-18] MEDS: predniSONE 20 MG TABLET PO SCH (09:18)
[2021-01-18] MEDS: MONTELUKAST 10 MG TABLET PO SCH (09:18)
[2021-01-18] MEDS: OXYBUTYNIN XL 15 MG TABLET PO SCH (09:18)
[2021-01-18] MEDS: TAMSULOSIN 0.4 MG CAPSULE PO SCH ×2 (09:18→20:43)
[2021-01-18] MEDS: NON-FORMULARY MEDICATION (Tiotropium-Olodaterol [Stiolto Respimat] 2.5-2.5 mcg/actuation M INH SCH (09:19)
[2021-01-18] MEDS: MORPHINE 2 MG/1 ML SYRINGE IV PRN ×2 (09:19→12:34)
[2021-01-18] MEDS: PANTOPRAZOLE 40 MG VIAL IV SCH (09:21)
[2021-01-18] MEDS ORDERED: SODIUM CHLORIDE 0.9% 1,000 ML IV PRN (13:36)
[2021-01-18] MEDS: SIMVASTATIN 40 MG TABLET PO SCH (20:44)
[2021-01-18] MEDS: INSULIN GLARGINE 100 UNIT/ML SUBCUT SCH (20:44)
[2021-01-19] MEDS: ALBUTEROL/IPRATROPIUM 3 ML NEB RESP TX SCH ×4 (00:43→19:18)
[2021-01-19] MEDS: HYDROCORTISONE 100 MG VIAL IV SCH ×5 (00:55→21:09)
[2021-01-19 05:29] LABS: Basophils % 0.1 % (0.0-0.8); Hematocrit 24.2 VOL% (42.0-52.0); Immature Granulocytes % 2.2 %; Immature Granulocytes Absolute 0.19 #; Lymphocytes # 0.4 10*3/uL (1.4-4.0); Mean Corpuscular HGB Conc 33.1 GM/DL (32-36); Mean Corpuscular Volume 95.3 FL (87-102); Mean Platelet Volume 10.9 FL (9.6-12.0); Monocytes % 5.7 % (1.7-12.7); Platelet Count 190 T/CUMM (130-400); Red Blood Count 2.54 MC/CUMM (3.8-5.5); Red Cell Distribution Width 15.4 % (9.3-17.3); White Blood Count 8.5 T/CUMM (4-12)
[2021-01-19 05:57] LABS: Calcium 8.4 MG/DL (8.5-10.1); Osmolality,Calculated 320.5 MOS/KG (273-304); Potassium 4.2 MMOL/L (3.5-5.1)
[2021-01-19] MEDS: INSULIN LISPRO 100 UNIT/ML SUBCUT SCH ×4 (08:32→21:10)
[2021-01-19] MEDS: TAMSULOSIN 0.4 MG CAPSULE PO SCH ×2 (08:33→21:08)
[2021-01-19] MEDS: predniSONE 20 MG TABLET PO SCH (08:33)
[2021-01-19] MEDS: PANTOPRAZOLE 40 MG VIAL IV SCH (08:33)
[2021-01-19] MEDS: DOCUSATE SODIUM 100 MG CAPSULE PO SCH ×2 (08:33→21:09)
[2021-01-19] MEDS: MYCOPHENOLATE MOFETIL 250 MG CAPSULE PO SCH ×2 (08:33→21:08)
[2021-01-19] MEDS: NON-FORMULARY MEDICATION (Tiotropium-Olodaterol [Stiolto Respimat] 2.5-2.5 mcg/actuation M INH SCH (08:33)
[2021-01-19] MEDS: OXYBUTYNIN XL 15 MG TABLET PO SCH (08:33)
[2021-01-19] MEDS: DUTASTERIDE 0.5 MG CAPSULE PO SCH (08:33)
[2021-01-19] MEDS: MONTELUKAST 10 MG TABLET PO SCH (08:33)
[2021-01-19] MEDS: SODIUM CHLORIDE 0.9% 1,000 ML IV SCH (08:47)
[2021-01-19] MEDS: SENNA 8.6 MG TABLET PO SCH (12:43)
[2021-01-19] MEDS: carvediloL 12.5 MG TABLET PO SCH (17:10)
[2021-01-19 18:20] LABS: Hematocrit 27.7 VOL% (42.0-52.0); Hemoglobin 9.1 GM/DL (14.0-18.0)
[2021-01-19] MEDS: SIMVASTATIN 40 MG TABLET PO SCH (21:08)
[2021-01-19] MEDS: INSULIN GLARGINE 100 UNIT/ML SUBCUT SCH (21:10)
[2021-01-19] MEDS: MORPHINE 2 MG/1 ML SYRINGE IV PRN (21:22)
[2021-01-20] MEDS: ALBUTEROL/IPRATROPIUM 3 ML NEB RESP TX SCH ×2 (00:13→07:24)
[2021-01-20] MEDS: MORPHINE 2 MG/1 ML SYRINGE IV PRN ×4 (00:35→23:25)
[2021-01-20] MEDS: SODIUM CHLORIDE 0.9% 1,000 ML IV SCH ×2 (01:10→01:16)
[2021-01-20] MEDS: HYDROmorphone 2 MG/1 ML VIAL IV PRN ×3 (02:53→21:43)
[2021-01-20] MEDS: HYDROCORTISONE 100 MG VIAL IV SCH ×2 (03:50→08:32)
[2021-01-20 04:13] LABS: Basophils % 0.1 % (0.0-0.8); Eosinophils % 0.1 % (0.00-10.9); Hematocrit 26.3 VOL% (42.0-52.0); Hemoglobin 8.9 GM/DL (14.0-18.0); Immature Granulocytes Absolute 0.18 #; Lymphocytes # 0.5 10*3/uL (1.4-4.0); Lymphocytes % 5.4 % (21.2-54.2); Mean Corpuscular HGB Conc 33.8 GM/DL (32-36); Mean Corpuscular Volume 93.6 FL (87-102); Mean Platelet Volume 10.8 FL (9.6-12.0); Monocytes % 8.4 % (1.7-12.7); Platelet Count 184 T/CUMM (130-400); Red Blood Count 2.81 MC/CUMM (3.8-5.5); Red Cell Distribution Width 15.5 % (9.3-17.3); White Blood Count 9.1 T/CUMM (4-12)
[2021-01-20 04:21] LABS: Osmolality,Calculated 319.3 MOS/KG (273-304); Potassium 3.8 MMOL/L (3.5-5.1)
[2021-01-20] MEDS: INSULIN LISPRO 100 UNIT/ML SUBCUT SCH ×4 (08:31→21:44)
[2021-01-20] MEDS: MYCOPHENOLATE MOFETIL 250 MG CAPSULE PO SCH ×2 (08:31→21:42)
[2021-01-20] MEDS: DOCUSATE SODIUM 100 MG CAPSULE PO SCH ×2 (08:31→21:42)
[2021-01-20] MEDS: TAMSULOSIN 0.4 MG CAPSULE PO SCH ×2 (08:31→21:42)
[2021-01-20] MEDS: predniSONE 20 MG TABLET PO SCH (08:31)
[2021-01-20] MEDS: OXYBUTYNIN XL 15 MG TABLET PO SCH (08:31)
[2021-01-20] MEDS: DUTASTERIDE 0.5 MG CAPSULE PO SCH (08:31)
[2021-01-20] MEDS: MONTELUKAST 10 MG TABLET PO SCH (08:32)
[2021-01-20] MEDS: SENNA 8.6 MG TABLET PO SCH (08:32)
[2021-01-20] MEDS: PANTOPRAZOLE 40 MG VIAL IV SCH (08:32)
[2021-01-20] MEDS: carvediloL 12.5 MG TABLET PO SCH ×2 (08:32→17:40)
[2021-01-20] MEDS: SIMVASTATIN 40 MG TABLET PO SCH (21:42)
[2021-01-20] MEDS: INSULIN GLARGINE 100 UNIT/ML SUBCUT SCH (21:44)
[2021-01-21] MEDS: MORPHINE 2 MG/1 ML SYRINGE IV PRN (04:33)
[2021-01-21] MEDS ORDERED: AMPICILLIN INJ 2,000 MG in SODIUM CHLORIDE 0.9% 100 ML IV ONE (06:00)
[2021-01-21 06:13] LABS: Basophils % 0.1 % (0.0-0.8); Eosinophils # 0.2 10*3/uL (0.0-0.87); Eosinophils % 1.4 % (0.00-10.9); Hematocrit 29.6 VOL% (42.0-52.0); Hemoglobin 9.7 GM/DL (14.0-18.0); Immature Granulocytes % 1.6 %; Immature Granulocytes Absolute 0.17 #; Lymphocytes # 0.6 10*3/uL (1.4-4.0); Lymphocytes % 5.8 % (21.2-54.2); Mean Corpuscular HGB Conc 32.8 GM/DL (32-36); Mean Corpuscular Volume 96.4 FL (87-102); Monocytes % 12.4 % (1.7-12.7); Neutrophils % 78.7 % (38.7-73.9); Platelet Count 219 T/CUMM (130-400); Red Blood Count 3.07 MC/CUMM (3.8-5.5); Red Cell Distribution Width 15.5 % (9.3-17.3); White Blood Count 10.7 T/CUMM (4-12)
[2021-01-21 06:46] LABS: Calcium 8.5 MG/DL (8.5-10.1); Osmolality,Calculated 318.7 MOS/KG (273-304); Potassium 3.8 MMOL/L (3.5-5.1)
[2021-01-21] MEDS: NON-FORMULARY MEDICATION (Tiotropium-Olodaterol [Stiolto Respimat] 2.5-2.5 mcg/actuation M INH SCH ×2 (08:14→12:41)
[2021-01-21] MEDS ORDERED: NEOMYCIN/POLYMYXIN IRRIG SOLN 1 ML AMP BLADDERIRR ONE (08:34)
[2021-01-21] MEDS ORDERED: fentaNYL 100 MCG/2 ML VIAL ONE (08:52)
[2021-01-21] MEDS ORDERED: LACTATED RINGERS 1,000 ML IV SCH (09:00)
[2021-01-21] MEDS ORDERED: PHENYLEPHRINE 10 MG/1 ML VIAL IV ONE ×2 (09:18→09:43)
[2021-01-21] MEDS ORDERED: LIDOCAINE 2% 5 ML VIAL ONE (09:42)
[2021-01-21] MEDS ORDERED: SEVOFLURANE 1 UNIT/15 MINUTE INH ONE ×6 (09:42→10:31)
[2021-01-21] MEDS ORDERED: PHENYLEPHRINE 1 MG/10 ML SYRINGE IV ONE (09:43)
[2021-01-21] MEDS ORDERED: ONDANSETRON 4 MG/2 ML VIAL ONE (09:43)
[2021-01-21] MEDS ORDERED: SUCCINYLCHOLINE 200 MG/10 ML VIAL ONE ×2 (09:43→11:05)
[2021-01-21] MEDS ORDERED: ROCURONIUM 50 MG/5 ML VIAL IV ONE ×2 (09:43→10:01)
[2021-01-21] MEDS ORDERED: ETOMIDATE 40 MG/20 ML VIAL IV ONE ×2 (09:43→11:05)
[2021-01-21] MEDS ORDERED: SODIUM CHLORIDE 0.9% 100 ML IV ONE ×3 (09:44→10:37)
[2021-01-21] MEDS ORDERED: NEOSTIGMINE 10 MG/10 ML VIAL ONE (10:31)
[2021-01-21] MEDS ORDERED: EPINEPHrine 1 MG/ML VIAL ONE (10:37)
[2021-01-21] MEDS ORDERED: SODIUM CHLORIDE 0.9% 1,000 ML IV ONE (10:37)
[2021-01-21] MEDS ORDERED: SUGAMMADEX 200 MG/2 ML VIAL IV ONE (10:55)
[2021-01-21] MEDS: ALBUTEROL/IPRATROPIUM 3 ML NEB RESP TX SCH ×5 (11:15→22:26)
[2021-01-21] MEDS: carvediloL 12.5 MG TABLET PO SCH ×2 (12:37→17:10)
[2021-01-21] MEDS: INSULIN LISPRO 100 UNIT/ML SUBCUT SCH ×4 (12:37→21:18)
[2021-01-21] MEDS: DUTASTERIDE 0.5 MG CAPSULE PO SCH (12:38)
[2021-01-21] MEDS: DOCUSATE SODIUM 100 MG CAPSULE PO SCH ×2 (12:39→22:26)
[2021-01-21] MEDS: MYCOPHENOLATE MOFETIL 250 MG CAPSULE PO SCH ×2 (12:39→22:26)
[2021-01-21] MEDS: SENNA 8.6 MG TABLET PO SCH (12:40)
[2021-01-21] MEDS: MONTELUKAST 10 MG TABLET PO SCH (12:40)
[2021-01-21] MEDS: OXYBUTYNIN XL 15 MG TABLET PO SCH (12:40)
[2021-01-21] MEDS: TAMSULOSIN 0.4 MG CAPSULE PO SCH ×2 (12:40→22:26)
[2021-01-21] MEDS: predniSONE 20 MG TABLET PO SCH (12:40)
[2021-01-21] MEDS: PANTOPRAZOLE 40 MG VIAL IV SCH (12:58)
[2021-01-21] MEDS: HYDROmorphone 2 MG/1 ML VIAL IV PRN ×2 (15:08→23:17)
[2021-01-21] MEDS: INSULIN GLARGINE 100 UNIT/ML SUBCUT SCH (21:18)
[2021-01-21] MEDS: SIMVASTATIN 40 MG TABLET PO SCH (22:26)
[2021-01-22] MEDS: ALBUTEROL/IPRATROPIUM 3 ML NEB RESP TX SCH ×4 (01:00→17:50)
[2021-01-22] MEDS: MORPHINE 2 MG/1 ML SYRINGE IV PRN ×2 (01:05→10:53)
[2021-01-22 06:25] LABS: Basophils % 0.1 % (0.0-0.8); Eosinophils # 0.5 10*3/uL (0.0-0.87); Eosinophils % 4.9 % (0.00-10.9); Hematocrit 36.1 VOL% (42.0-52.0); Hemoglobin 11.7 GM/DL (14.0-18.0); Immature Granulocytes % 1.2 %; Immature Granulocytes Absolute 0.13 #; Lymphocytes # 0.7 10*3/uL (1.4-4.0); Lymphocytes % 6.8 % (21.2-54.2); Mean Corpuscular HGB Conc 32.4 GM/DL (32-36); Mean Corpuscular Volume 98.4 FL (87-102); Mean Platelet Volume 10.9 FL (9.6-12.0); Monocytes % 9.6 % (1.7-12.7); Neutrophils % 77.4 % (38.7-73.9); Platelet Count 175 T/CUMM (130-400); Red Blood Count 3.67 MC/CUMM (3.8-5.5); Red Cell Distribution Width 15.5 % (9.3-17.3); White Blood Count 10.8 T/CUMM (4-12)
[2021-01-22 06:55] LABS: Calcium 8.8 MG/DL (8.5-10.1); Osmolality,Calculated 320.4 MOS/KG (273-304); Potassium 4.9 MMOL/L (3.5-5.1)
[2021-01-22] MEDS: INSULIN LISPRO 100 UNIT/ML SUBCUT SCH ×4 (08:30→21:28)
[2021-01-22] MEDS: DUTASTERIDE 0.5 MG CAPSULE PO SCH (10:16)
[2021-01-22] MEDS: carvediloL 12.5 MG TABLET PO SCH ×2 (10:16→17:20)
[2021-01-22] MEDS: TAMSULOSIN 0.4 MG CAPSULE PO SCH ×2 (10:17→20:42)
[2021-01-22] MEDS: OXYBUTYNIN XL 15 MG TABLET PO SCH (10:17)
[2021-01-22] MEDS: MONTELUKAST 10 MG TABLET PO SCH (10:18)
[2021-01-22] MEDS: DOCUSATE SODIUM 100 MG CAPSULE PO SCH ×2 (10:18→20:42)
[2021-01-22] MEDS: predniSONE 20 MG TABLET PO SCH (10:19)
[2021-01-22] MEDS: SENNA 8.6 MG TABLET PO SCH (10:20)
[2021-01-22] MEDS: MYCOPHENOLATE MOFETIL 250 MG CAPSULE PO SCH ×2 (10:21→20:42)
[2021-01-22] MEDS: NON-FORMULARY MEDICATION (Tiotropium-Olodaterol [Stiolto Respimat] 2.5-2.5 mcg/actuation M INH SCH (10:21)
[2021-01-22] MEDS: PANTOPRAZOLE 40 MG VIAL IV SCH (10:22)
[2021-01-22] MEDS: HYDROmorphone 2 MG/1 ML VIAL IV PRN (12:22)
[2021-01-22] MEDS: INSULIN GLARGINE 100 UNIT/ML SUBCUT SCH (20:41)
[2021-01-22] MEDS: SIMVASTATIN 40 MG TABLET PO SCH (20:42)
[2021-01-23] MEDS: ALBUTEROL/IPRATROPIUM 3 ML NEB RESP TX SCH ×4 (00:36→19:53)
[2021-01-23] MEDS: MORPHINE 2 MG/1 ML SYRINGE IV PRN ×2 (03:44→11:24)
[2021-01-23] MEDS: INSULIN LISPRO 100 UNIT/ML SUBCUT SCH ×4 (08:18→20:54)
[2021-01-23] MEDS: SENNA 8.6 MG TABLET PO SCH (08:56)
[2021-01-23] MEDS: DUTASTERIDE 0.5 MG CAPSULE PO SCH (08:56)
[2021-01-23] MEDS: predniSONE 20 MG TABLET PO SCH (08:56)
[2021-01-23] MEDS: MONTELUKAST 10 MG TABLET PO SCH (08:59)
[2021-01-23] MEDS: TAMSULOSIN 0.4 MG CAPSULE PO SCH ×2 (08:59→20:54)
[2021-01-23] MEDS: PANTOPRAZOLE 40 MG VIAL IV SCH (09:00)
[2021-01-23] MEDS: carvediloL 12.5 MG TABLET PO SCH ×2 (09:00→17:19)
[2021-01-23] MEDS: OXYBUTYNIN XL 15 MG TABLET PO SCH (09:00)
[2021-01-23] MEDS: DOCUSATE SODIUM 100 MG CAPSULE PO SCH ×2 (09:00→20:53)
[2021-01-23] MEDS: MYCOPHENOLATE MOFETIL 250 MG CAPSULE PO SCH ×2 (09:18→20:53)
[2021-01-23] MEDS: NON-FORMULARY MEDICATION (Tiotropium-Olodaterol [Stiolto Respimat] 2.5-2.5 mcg/actuation M INH SCH (10:00)
[2021-01-23] MEDS: SIMVASTATIN 40 MG TABLET PO SCH (20:53)
[2021-01-23] MEDS: INSULIN GLARGINE 100 UNIT/ML SUBCUT SCH (20:54)
[2021-01-24] MEDS: ALBUTEROL/IPRATROPIUM 3 ML NEB RESP TX SCH ×4 (00:43→19:25)
[2021-01-24 05:10] LABS: Calcium 8.3 MG/DL (8.5-10.1); Osmolality,Calculated 303.1 MOS/KG (273-304)
[2021-01-24] MEDS: INSULIN LISPRO 100 UNIT/ML SUBCUT SCH ×4 (08:05→20:19)
[2021-01-24] MEDS: OXYBUTYNIN XL 15 MG TABLET PO SCH (09:18)
[2021-01-24] MEDS: DUTASTERIDE 0.5 MG CAPSULE PO SCH (09:18)
[2021-01-24] MEDS: DOCUSATE SODIUM 100 MG CAPSULE PO SCH ×2 (09:19→20:19)
[2021-01-24] MEDS: TAMSULOSIN 0.4 MG CAPSULE PO SCH ×2 (09:19→20:19)
[2021-01-24] MEDS: predniSONE 20 MG TABLET PO SCH (09:19)
[2021-01-24] MEDS: MYCOPHENOLATE MOFETIL 250 MG CAPSULE PO SCH ×2 (09:19→20:19)
[2021-01-24] MEDS: SENNA 8.6 MG TABLET PO SCH (09:19)
[2021-01-24] MEDS: NON-FORMULARY MEDICATION (Tiotropium-Olodaterol [Stiolto Respimat] 2.5-2.5 mcg/actuation M INH SCH (09:19)
[2021-01-24] MEDS: MONTELUKAST 10 MG TABLET PO SCH (09:19)
[2021-01-24] MEDS: carvediloL 12.5 MG TABLET PO SCH ×2 (09:19→16:45)
[2021-01-24] MEDS: PANTOPRAZOLE 40 MG VIAL IV SCH (09:19)
[2021-01-24] MEDS: SIMVASTATIN 40 MG TABLET PO SCH (20:19)
[2021-01-24] MEDS: INSULIN GLARGINE 100 UNIT/ML SUBCUT SCH (20:52)
[2021-01-25] MEDS: ALBUTEROL/IPRATROPIUM 3 ML NEB RESP TX SCH ×4 (00:52→19:58)
[2021-01-25 05:26] LABS: Eosinophils # 0.3 10*3/uL (0.0-0.87); Eosinophils % 2.7 % (0.00-10.9); Hematocrit 32.8 VOL% (42.0-52.0); Hemoglobin 10.8 GM/DL (14.0-18.0); Immature Granulocytes % 0.8 %; Immature Granulocytes Absolute 0.09 #; Lymphocytes # 0.5 10*3/uL (1.4-4.0); Lymphocytes % 4.3 % (21.2-54.2); Mean Corpuscular HGB Conc 32.9 GM/DL (32-36); Mean Corpuscular Volume 95.6 FL (87-102); Mean Platelet Volume 11.7 FL (9.6-12.0); Monocytes % 8.1 % (1.7-12.7); Neutrophils % 84.1 % (38.7-73.9); Platelet Count 198 T/CUMM (130-400); Red Blood Count 3.43 MC/CUMM (3.8-5.5); Red Cell Distribution Width 14.4 % (9.3-17.3); White Blood Count 11.6 T/CUMM (4-12)
[2021-01-25 05:44] LABS: Calcium 8.4 MG/DL (8.5-10.1); Osmolality,Calculated 303.8 MOS/KG (273-304); Potassium 4.2 MMOL/L (3.5-5.1)
[2021-01-25 06:25] LABS: Anisocytosis 2+; Band Neutrophils 4 % (0-10); Eosinophils 6 % (0-10); Lymphocytes 4 % (20-55); Macrocytosis 1+; Platelet Estimate Normal; Segmented Neutrophils 81 % (50-85); Total Cells Counted 100
[2021-01-25] MEDS: INSULIN LISPRO 100 UNIT/ML SUBCUT SCH ×4 (08:36→21:18)
[2021-01-25] MEDS: MONTELUKAST 10 MG TABLET PO SCH (09:53)
[2021-01-25] MEDS: carvediloL 12.5 MG TABLET PO SCH ×2 (09:53→17:16)
[2021-01-25] MEDS: SENNA 8.6 MG TABLET PO SCH (09:53)
[2021-01-25] MEDS: predniSONE 20 MG TABLET PO SCH (09:53)
[2021-01-25] MEDS: PANTOPRAZOLE 40 MG VIAL IV SCH (09:54)
[2021-01-25] MEDS: OXYBUTYNIN XL 15 MG TABLET PO SCH (09:54)
[2021-01-25] MEDS: DOCUSATE SODIUM 100 MG CAPSULE PO SCH ×2 (09:54→21:18)
[2021-01-25] MEDS: MYCOPHENOLATE MOFETIL 250 MG CAPSULE PO SCH ×2 (09:54→21:18)
[2021-01-25] MEDS: DUTASTERIDE 0.5 MG CAPSULE PO SCH (09:54)
[2021-01-25] MEDS: TAMSULOSIN 0.4 MG CAPSULE PO SCH ×2 (09:54→21:18)
[2021-01-25] MEDS: NON-FORMULARY MEDICATION (Tiotropium-Olodaterol [Stiolto Respimat] 2.5-2.5 mcg/actuation M INH SCH (09:55)
[2021-01-25] MEDS: SIMVASTATIN 40 MG TABLET PO SCH (21:18)
[2021-01-25] MEDS: INSULIN GLARGINE 100 UNIT/ML SUBCUT SCH (21:18)
[2021-01-26] MEDS: ALBUTEROL/IPRATROPIUM 3 ML NEB RESP TX SCH ×4 (00:08→19:33)
[2021-01-26 06:12] LABS: Basophils % 0.1 % (0.0-0.8); Eosinophils # 0.3 10*3/uL (0.0-0.87); Eosinophils % 2.4 % (0.00-10.9); Hematocrit 33.9 VOL% (42.0-52.0); Hemoglobin 10.8 GM/DL (14.0-18.0); Immature Granulocytes % 0.5 %; Immature Granulocytes Absolute 0.06 #; Lymphocytes # 0.6 10*3/uL (1.4-4.0); Lymphocytes % 5.3 % (21.2-54.2); Mean Corpuscular HGB Conc 31.9 GM/DL (32-36); Mean Corpuscular Volume 96.6 FL (87-102); Mean Platelet Volume 10.5 FL (9.6-12.0); Monocytes % 8.1 % (1.7-12.7); Neutrophils % 83.6 % (38.7-73.9); Platelet Count 190 T/CUMM (130-400); Red Blood Count 3.51 MC/CUMM (3.8-5.5); Red Cell Distribution Width 14.5 % (9.3-17.3); White Blood Count 11.2 T/CUMM (4-12)
[2021-01-26 06:32] LABS: Calcium 8.2 MG/DL (8.5-10.1); Osmolality,Calculated 295.3 MOS/KG (273-304); Potassium 4.3 MMOL/L (3.5-5.1)
[2021-01-26] MEDS: INSULIN LISPRO 100 UNIT/ML SUBCUT SCH ×4 (07:59→21:44)
[2021-01-26] MEDS: TAMSULOSIN 0.4 MG CAPSULE PO SCH ×2 (08:41→21:44)
[2021-01-26] MEDS: MYCOPHENOLATE MOFETIL 250 MG CAPSULE PO SCH ×2 (08:41→21:45)
[2021-01-26] MEDS: predniSONE 20 MG TABLET PO SCH (08:41)
[2021-01-26] MEDS: MONTELUKAST 10 MG TABLET PO SCH (08:41)
[2021-01-26] MEDS: DUTASTERIDE 0.5 MG CAPSULE PO SCH (08:41)
[2021-01-26] MEDS: SENNA 8.6 MG TABLET PO SCH (08:41)
[2021-01-26] MEDS: DOCUSATE SODIUM 100 MG CAPSULE PO SCH ×2 (08:42→21:44)
[2021-01-26] MEDS: carvediloL 12.5 MG TABLET PO SCH ×2 (08:42→16:42)
[2021-01-26] MEDS: PANTOPRAZOLE 40 MG VIAL IV SCH (08:44)
[2021-01-26] MEDS: NON-FORMULARY MEDICATION (Tiotropium-Olodaterol [Stiolto Respimat] 2.5-2.5 mcg/actuation M INH SCH (09:20)
[2021-01-26 12:43] LABS: 25-Hydroxy D Total 21 ng/mL; 25-Hydroxy D2 < 4.0 ng/mL; 25-Hydroxy D3 21 ng/mL
[2021-01-26] MEDS: INSULIN GLARGINE 100 UNIT/ML SUBCUT SCH (21:43)
[2021-01-26] MEDS: CHOLECALCIFEROL 400 UNIT TABLET PO SCH (21:43)
[2021-01-26] MEDS: SIMVASTATIN 40 MG TABLET PO SCH (21:43)
[2021-01-27] MEDS: HYDROmorphone 2 MG/1 ML VIAL IV PRN (00:21)
[2021-01-27] MEDS: ALBUTEROL/IPRATROPIUM 3 ML NEB RESP TX SCH ×4 (01:31→19:49)
[2021-01-27] MEDS ORDERED: LORazepam 2 MG/1 ML VIAL IV ONE (01:49)
[2021-01-27 06:13] LABS: Calcium 8.3 MG/DL (8.5-10.1); Osmolality,Calculated 290.7 MOS/KG (273-304); Potassium 4.2 MMOL/L (3.5-5.1)
[2021-01-27] MEDS: INSULIN LISPRO 100 UNIT/ML SUBCUT SCH ×4 (07:56→20:59)
[2021-01-27] MEDS ORDERED: FUROSEMIDE 40 MG/4 ML VIAL IV ONE (08:01)
[2021-01-27] MEDS: PANTOPRAZOLE 40 MG VIAL IV SCH (08:52)
[2021-01-27] MEDS: SENNA 8.6 MG TABLET PO SCH (08:57)
[2021-01-27] MEDS: CHOLECALCIFEROL 400 UNIT TABLET PO SCH ×2 (08:58→21:00)
[2021-01-27] MEDS: carvediloL 12.5 MG TABLET PO SCH ×2 (08:58→17:11)
[2021-01-27] MEDS: predniSONE 20 MG TABLET PO SCH (08:58)
[2021-01-27] MEDS: DOCUSATE SODIUM 100 MG CAPSULE PO SCH ×2 (08:58→20:59)
[2021-01-27] MEDS: TAMSULOSIN 0.4 MG CAPSULE PO SCH ×2 (08:58→20:59)
[2021-01-27] MEDS: MONTELUKAST 10 MG TABLET PO SCH (08:58)
[2021-01-27] MEDS: DUTASTERIDE 0.5 MG CAPSULE PO SCH (08:58)
[2021-01-27] MEDS: MYCOPHENOLATE MOFETIL 250 MG CAPSULE PO SCH ×2 (08:58→20:59)
[2021-01-27] MEDS: NON-FORMULARY MEDICATION (Tiotropium-Olodaterol [Stiolto Respimat] 2.5-2.5 mcg/actuation M INH SCH (08:59)
[2021-01-27] MEDS ORDERED: FUROSEMIDE 40 MG TABLET PO SCH (09:00)
[2021-01-27] MEDS ORDERED: TUBERCULIN SKIN TEST 0.1 ML SYRINGE INTRADERM ONE (11:58)
[2021-01-27] MEDS: LORazepam 2 MG/1 ML VIAL IV PRN ×2 (15:11→21:00)
[2021-01-27] MEDS ORDERED: MORPHINE 2 MG/1 ML SYRINGE IV PRN (15:15)
[2021-01-27 15:41] LABS: Basophils % 0.1 % (0.0-0.8); Eosinophils % 0.1 % (0.00-10.9); Hematocrit 35.8 VOL% (42.0-52.0); Hemoglobin 11.7 GM/DL (14.0-18.0); Immature Granulocytes % 0.6 %; Immature Granulocytes Absolute 0.09 #; Lymphocytes # 0.3 10*3/uL (1.4-4.0); Lymphocytes % 2.1 % (21.2-54.2); Mean Corpuscular HGB Conc 32.7 GM/DL (32-36); Mean Corpuscular Volume 99.4 FL (87-102); Mean Platelet Volume 12.7 FL (9.6-12.0); Monocytes % 3.4 % (1.7-12.7); Neutrophils % 93.7 % (38.7-73.9); Platelet Count 74 T/CUMM (130-400); Red Cell Distribution Width 14.5 % (9.3-17.3); White Blood Count 14.4 T/CUMM (4-12)
[2021-01-27 16:06] LABS: ABG Base Excess -0.5 MMOL/L (-2.5-2.5); ABG HCO3 23.9 MMOL/L (20-26); ABG Oxygen Saturation 92.3 % (95-100); ABG PCO2 48.4 MM HG (35-48); ABG PH 7.334 (7.35-7.45); ABG PO2 66.6 MM HG (80-95); ABG TCO2 23.3 MMOL/L (23-27)
[2021-01-27] MEDS: SIMVASTATIN 40 MG TABLET PO SCH (21:00)
[2021-01-27] MEDS: INSULIN GLARGINE 100 UNIT/ML SUBCUT SCH (21:00)
[2021-01-28 00:52] VITALS: BP 147/73
[2021-01-28] MEDS: ALBUTEROL/IPRATROPIUM 3 ML NEB RESP TX SCH (01:15)
[2021-01-28 02:31] LABS: Acanthocytes 2+; Band Neutrophils 2 % (0-10); Hypersegmented Neutrophil 1+; Lymphocytes 2 % (20-55); Macrocytosis 1+; Ovalocytes 1+; Platelet Estimate Decreased; Segmented Neutrophils 94 % (50-85); Total Cells Counted 100
[2021-01-28 02:32] LABS: Anisocytosis 2+; Microcytosis 1+
[2021-01-28] MEDS ORDERED: FUROSEMIDE 40 MG TABLET PO SCH (09:00)
== END 2021-01-28 01:59 | disposition expired | DRG 982 ==
LOC: N.TELEN 14:31 → SUATTDRO 14:31 → N.ICU 01-15 17:19 → N.4E 01-20 09:43
PROVIDERS: ADMIT Family Medicine; ATTEND Family Medicine